=== PATIENT | female | born 1990 | race Two or more races ===

== ENCOUNTER 2020-06-09 03:13 | Emergency (ER) | payer SELFPAY ==
[~2020-06-09] VITALS: Ht 167.6 cm; Wt 49.9 kg
[2020-06-09] MEDS ORDERED: PENICILLIN (03:24)
[2020-06-09] MEDS ORDERED: NAPROXEN500 M1 ORAL (03:28)
[2020-06-09] MEDS ORDERED: CLINDAMYCIN HC300 MG ORAL (03:28)
[2020-06-09 03:39] VITALS: BP 108/79
--- NOTE | 2020-06-09 03:55 | Emergency Room Report ---
History of Present Illness General Chief Complaint: Toothache Source: Patient Present Illness HPI 21-year-old -[place] female with past medical history of ADHD presents by ambulance for complaint of tooth pain. Patient states that she has been grinding her teeth. Denies fevers, chills, sore throat, headache, neck pain, hoarse voice, stridor, drooling, or other symptoms. The patient's symptoms were gradual onset, severity was mild, duration since chronic number of days. Quality: Aching Past medical history: ADHD Past surgical history: Denies Smoking: ++ Alcohol use: Denies Drug use: ++ Review of systems: CONST: No fevers or chills, No night sweats PULMONARY: No productive cough, No shortness of breath CARDIAC: No chest pain, No palpitations GI: No vomiting, No diarrhea , No melena_or_BRBPR : No dysuria, No hematuria, No discharge NEURO: No new_focal_weakness_or_numbness, No confusion, No vision changes 14 point Review of Systems is otherwise negative except per HPI Physical Exam: GENERAL: Awake_alert_ nontoxic, no acute distress Spo2 98% on RA -normal EYES: Extraocular muscles are intact. Conjunctivae clear. Lids without swelling ENT: External nose and ear normal_in_appearance. Oropharynx clear. Extremely poor dentition with multiple dental caries. The left posterior teeth have dental fractures Florence stage II. No periapical abscess. Head_atraumatic, Moist_oral_mucosa. No hoarse voice, stridor, drooling. No mandibular instability. NECK: No JVD. No meningismus. No thyromegaly. Supple. Trachea midline RESP: Normal respiratory effort. Symmetric rise. No stridor. Clear_to_auscultation_No_rales_No_wheezes CARDIAC: [Regular rate] and regular rhytm. No_significant pedal edema. ABDOMEN: Soft. Nondistended. Nontender_No_rebound_or_guarding. MSK: Normal muscle tone, without rigidity. Extremities without asymmetric deformity or swelling. SKIN: Warm and dry. No visible cyanosis or pallor NEUROLOGIC: Alert, oriented x3. Motor_and_sensation_grossly_intact. No truncal ataxia. Gait_normal Psych: Normal mood and affect, normal judgment and insight - COORDINATION OF CARE Case was discussed with: Patient Medical Decision Making/Plan: DDx: Toothache versus dental fracture versus cavity versus apical abscess, doubt deep space neck infection Patient is a well-appearing 29-year-old female with history of ADHD presenting with tooth pain. On examination of her oropharynx, she is found to have poor dentition with multiple dental fractures and dental caries, likely chronic. There is no extension to the submandibular space, no hoarse voice, stridor, drooling, or fever to represent deep space neck infection, Fabian's angina, or spreading dental abscess/facial cellulitis. Patient is asking for food which she was provided with. Her oropharynx is intact. I have instructed her to follow-up with a dentist in the next 1 to 2 days for likely extraction. Her dental fractures are stable for outpatient follow-up. I have given her referral information for the dental clinics at [facility] and [facility]. I have instructed her to stop grinding her teeth. She verbalizes her understanding. She is amenable to discharge home at this time. I offered to call director social, however she does not want to wait. She has declined social work services. Pertinent results reviewed with the patient. I educated the patient on the current treatment plan including the risks, benefits, and alternatives. I also discussed the extent and limitations of the current evaluation. The patient expressed understanding and agreement with plan. I recommended PMD follow-up wi thin 1-2 days. Also advised that the patient return to the Emergency Department as soon as possible if they experience any new, persistent, or worsening symptoms. 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: No Patient History Last Menstrual Period: 05/28/2020 Now: No Nursing Documentation-PM Past Medical History: No History, Except For Physical Exam Vital Signs Date Time Temp Pulse Resp B/P (MAP) Pulse Ox O2 Delivery O2 Flow Rate FiO2 06/09/20 03:17 98.2 80 16 110/70 (83) 98 Room Air Sp02 EP Interpretation: reviewed, normal Medical Decision Making Diagnostic Impression: Primary Impression: Tooth fracture Additional Impressions: Toothache Dental cavity Last Vital Signs Date Time Temp Pulse Resp B/P (MAP) Pulse Ox O2 Delivery O2 Flow Rate FiO2 06/09/20 03:39 98.2 75 17 108/79 99 Room Air Disposition: HOME, SELF-CARE Admit Decision Time: 03:54 Condition: Stable Scripts Naproxen* (NAPROXEN*) 500 Mg Tablet.dr 500 MG ORAL TWICE A DAY for 10 Days, #20 TAB Prov: Olga Lidia August D.O. 06/09/20 Clindamycin Hcl (CLINDAMYCIN HCL) 300 Mg Capsule 300 MG ORAL THREE TIMES A DAY, #21 CAP Prov: Olga Lidia August D.O. 06/09/20 Referrals: [facility](age 2-12) - Orthodontic Clinic - Hours: Fri,Fri,, 8:15am and 1pm (new patient screening), Tues. 1pm. Emergency clinic Friday - Friday 8:30am and 1pm, Tues. 1pm. *Call to check if clinic is open; No appointment necessary for the first visit (new patient screening), Arrive 15-30 minutes early as it is first come, first serve. 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 Stop grinding your teeth. Follow-up with a dentist in 1 to 2 days. Take all medications as prescribed. Do not take antibiotics on an empty stomach. Follow-up with your doctor sooner if your condition requires a more timely clinical reevaluation. Return to the emergency department immediately if you feel that your condition is worsening or if you have any new or concerning symptoms. Review your discharge instructions and take any prescriptions given as instructed. [facility] PROVIDES FREE OR LOW-COST HEALTH SERVICES TO PEOPLE WHO CAN SHOW PROOF THAT THEY LIVE IN [facility]. TO FIND MORE CLINICS PARTNERED WITH THE [facility] TO PROVIDE SERVICE, PLEASE CALL . Olga Lidia August D.O. Jun 09, 2020 03:55
[2020-06-09 05:42] VITALS: BP 111/79
== END 2020-06-09 05:42 | disposition home or self-care (01) ==
LOC: EDBD 03:13 → EMR 03:56
DX: S02.5XXA Fracture of tooth (traumatic), initial encounter for closed fracture (principal); X58.XXXA Exposure to other specified factors, initial encounter; Y92.9 Unspecified place or not applicable; K08.89 Other specified disorders of teeth and supporting structures; K02.9 Dental caries, unspecified; Z88.0 Allergy status to penicillin
CPT/HCPCS: 99283